=== PATIENT | female | born 1995 | race Caucasian/White ===

== ENCOUNTER 2024-09-16 13:42 | Outpatient (CLI) | payer OTHER, SELFPAY ==
--- NOTE | 2024-09-16 14:00 | CRLHL7_ITS ---
For Patients: As a result of the Century Cures Act, medical imaging exams and procedure reports are released immediately into your electronic medical record. You may view this report before your referring provider. If you have questions, please contact your health care provider. INDICATION: First trimester dating and viability. TECHNIQUE: Ultrasound OB pelvis transabdominal and transvaginal. Real-time trevizo-scale imaging of the pelvis was performed. COMPARISON: None. FINDINGS: Intrauterine gestation: Single. heart activity (bpm): 171. [place]-rump length: 3.5 cm. Estimated ultrasound age: 10 weeks 3 days. IBETH by ultrasound: 04/11/2025. Yolk sac: Normal. Perigestational hemorrhage: None. Ovaries and adnexa: The right ovary measures 2.9 x 1.4 x 2.2 cm. The left ovary measures 3.1 x 1.4 x 2.4 cm. Flow is demonstrated in both ovaries. Suspicious pelvic fluid collections: Possible small subchorionic hemorrhage measuring 1.8 x 1 x 1.2 cm. IMPRESSION: 1. Single viable intrauterine with estimated ultrasound age of 10 weeks 3 days and IBETH by ultrasound of 04/11/2025. 2. Possible small subchorionic hemorrhage Dictated by Anai Doe MD @ 09/17/2024 10:01:39 PM (Electronically Signed)
== END 2024-09-16 13:43 | disposition home or self-care (01) ==
LOC: US 13:43
PROVIDERS: Visit Provider Advanced Practice Midwife
DX: Z34.91 Encounter for supervision of normal pregnancy, unspecified, first trimester (principal); O20.9 Hemorrhage in early pregnancy, unspecified; Z3A.10 10 weeks gestation of pregnancy
CPT/HCPCS: 76801; 83021; 86592; 86703; 86704; 86706; 86762; 86787; 86803; 86850; 86900; 86901; 87086; 87340

== ENCOUNTER 2024-09-16 14:55 | Outpatient (CLI) | payer OTHER, SELFPAY | END 2024-09-16 14:56 | disposition home or self-care (01) | PROVIDERS: Visit Provider Advanced Practice Midwife | DX: Z34.91 Encounter for supervision of normal pregnancy, unspecified, first trimester (principal); Z3A.11 11 weeks gestation of pregnancy | CPT/HCPCS: 83020; 83021; 85660; 86592; 86703; 86704; 86706; 86762; 86787; 86803; 86850; 86900; 86901; 87086; 87340 ==

== ENCOUNTER 2024-11-18 09:50 | Outpatient (CLI) | payer OTHER, SELFPAY | END 2024-11-18 09:51 | disposition home or self-care (01) | LOC: US 09:51 | PROVIDERS: PCP Family Medicine; Visit Provider Obstetrics & Gynecology | DX: Z34.92 Encounter for supervision of normal pregnancy, unspecified, second trimester (principal); Z3A.20 20 weeks gestation of pregnancy | CPT/HCPCS: 76805 ==

== ENCOUNTER 2025-01-17 08:11 | Outpatient (CLI) | payer OTHER, SELFPAY ==
--- NOTE | 2025-01-17 08:15 | CRLHL7_ITS ---
For Patients: As a result of the Century Cures Act, medical imaging exams and procedure reports are released immediately into your electronic medical record. You may view this report before your referring provider. If you have questions, please contact your health care provider. OB ULTRASOUND FOLLOW-UP GROWTH IBETH by LMP or US: 04/05/2025. GA: 28 w, 6 d. Single. Comparison: US 11/18/2024. TECHNIQUE: Real time trevizo scale imaging of the fetus was performed. Transabdominal. CERVIX: Not visualized. POSITIONING: Breech. AMNIOTIC FLUID: 4.0 cm. SDP (N: greater than 2 x 1 cm) PLACENTA: Technique: Transabdominal. PLACENTA POSITION: Posterior. DOPPLER: heart rate: 154 bpm. BIOMETRY: BPD: 7.0 cm. 28 w, 1 d, 16 percent. HC: 26.5 cm. 28 w, 6 d, 17 percent. AC: 24.4 cm. 28 w, 5 d, 37 percent. FL: 4.9 cm. 26 w, 4 d, <3 percent. FL/AC ratio: 20.15 percent. HC/AC ratio: 1.08. EFW: 1150 g. Weight: 2 lbs, 9 oz. age by this US: 28 w, 1 d. IBETH by this US: 04/10/2025. Percentile by IBETH: 12 percent. IMPRESSION: 1. Sonographic gestational age 28 weeks 1 day and sonographic due date 04/10/2025. Sonographic age is 5 days behind the clinical age. 2. Estimated weight 12th percentile. Abdominal circumference 37th percentile. Femur length less than 3rd percentile. Carlos Noguera M.D. Diagnostic Radiologist [email or web address] SP/Dictated by: Carlos Noguera MD @ 01/17/2025 8:03:00 PM (Electronically Signed)
== END 2025-01-17 08:12 | disposition home or self-care (01) ==
LOC: US 08:12
PROVIDERS: PCP Family Medicine; Visit Provider Advanced Practice Midwife
DX: Z34.93 Encounter for supervision of normal pregnancy, unspecified, third trimester (principal); Z3A.28 28 weeks gestation of pregnancy
CPT/HCPCS: 76816; 86592

== ENCOUNTER 2025-03-07 14:00 | Outpatient (CLI) | payer OTHER, SELFPAY | END 2025-03-07 14:01 | disposition home or self-care (01) | PROVIDERS: PCP Family Medicine; Referring Provider Family Medicine; Visit Provider Midwife | DX: Z34.93 Encounter for supervision of normal pregnancy, unspecified, third trimester (principal); Z3A.35 35 weeks gestation of pregnancy | CPT/HCPCS: 87081; 87653 ==

== ENCOUNTER 2025-04-12 07:26 | Outpatient (CLI) | payer OTHER, SELFPAY ==
--- NOTE | 2025-04-12 07:15 | CRLHL7_ITS ---
For Patients: As a result of the Century Cures Act, medical imaging exams and procedure reports are released immediately into your electronic medical record. You may view this report before your referring provider. If you have questions, please contact your health care provider. INDICATION: 29 year-old female. Post-dates. COMPARISON: None. TECHNIQUE: Real time trevizo scale imaging of the fetus was performed. without non-stress testing. FINDINGS: Sonographic imaging demonstrates a single living intrauterine gestation. Fetus demonstrates a regular cardiac rate of 141 beats per minute. Fetus has a vertex orientation with spine to the maternal right side. The placenta is posteriorly located and toward the left lateral uterine wall. The amniotic fluid volume appears normal and there is a single deepest pocket measurement of 6.5 cm. The fetus was active and demonstrated normal breathing movements. There was normal flexion and extension of the trunk and extremities. IMPRESSION: Normal biophysical profile score of 8 out of 8. Dictated by Kodi Xiao MD @ 04/12/2025 9:18:33 AM (Electronically Signed)
== END 2025-04-12 07:27 | disposition home or self-care (01) ==
LOC: US 07:27
PROVIDERS: PCP Family Medicine; Visit Provider Advanced Practice Midwife
DX: O48.0 Post-term pregnancy (principal); Z3A.41 41 weeks gestation of pregnancy
CPT/HCPCS: 76819; 87081; 87653

== ENCOUNTER 2025-04-12 08:59 | Outpatient (CLI) | payer OTHER, SELFPAY ==
[2025-04-13 09:58] LABS: Strep B DNA Probe Negative (Negative)
[2025-04-13 10:34] LABS: Strep B Susceptibility Needed? No
== END 2025-04-12 09:00 | disposition home or self-care (01) ==
LOC: NFLDREF 08:59
PROVIDERS: PCP Family Medicine; Visit Provider Midwife
DX: O48.0 Post-term pregnancy (principal); Z3A.41 41 weeks gestation of pregnancy
CPT/HCPCS: 87081; 87653

== ENCOUNTER 2025-04-13 04:31 | Inpatient (IN) | payer OTHER, SELFPAY ==
[2025-04-13] VITALS (9 sets, daily range): BP systolic 113–144; BP diastolic 62–80; PULSE 82–118; RESP 16–20; TEMP 36.7–37; O2SAT 98; BMI 31.4
--- NOTE | 2025-04-13 05:06 | P.LDBA_ITS ---
Subjective History of Present Illness Date Seen: 04/13/25 Narrative: Patient is being admitted to Labor and Delivery for spontaneous labor. She is a 29 year old at 41 1/7 weeks gestation. Her full history and physical was dictated by Stefany MUNOZ on 03/15/2025. Please see this for details. Nathanael is supporting her in labor. No LOF. Minimal bloody show is present. Good movement. Contractions started to get stronger at 0315 with some rectal pressure. Mostly felt in the front with vaginal pressure Specific Issues/Plans Partner: Nathanael? H&P:? Completed by Stefany MUNOZ 03/15/2025? # Twin brother passed from diaphragmatic hernia 1 day after delivery? * recommended pt get more info from mother about brothers condition (not a heart defect, hole in diaphragm) * consider level II with MFM, declined * declines genetic screening at this time #? Right elbow fracture. Elbow surgery 11/22/24 at [place] She will have significant lifting restrictions for 6 months. [id number]. Most restriction have been removed, approved to hold my baby. # FAS EFW 11.9% ( BPD 28%, HC 19%, AC 33%, FL 6.5%) Follow-up growth at 28wks: 12% (BPD 16%, AC 17%, AC 37%, FL <3%) Imaging:?? Anatomy: EFW 11.9%, FL 6.5% 1)Concordance of clinical and sonographic dating. 2)Normal anatomic survey. ? Follow-up Growth: IMPRESSION: 1. Sonographic gestational age 28 weeks 1 day and sonographic due date 04/10/2025. Sonographic age is 5 days behind the clinical age. 2. Estimated weight 12th percentile. Abdominal circumference 37th percentile. Femur length less than 3rd percentile. ? Vaccinations:?? COVID: initial series, not boosted Flu: 08/16/2024 through Tdap: 01/31/25 RSV: N/A 32 week mental health: []? Last pap:? 12/18/22 NIL, neg HPV? OB - Problem Based A/P Additional Plan (1) Pain during labor: Status: Acute Plan ASSESSMENT:?? 29 at 41 1/7 weeks gestation?? complicated by:?none Labor type:Spontaneous, Early almost Active labor?? Category 1 FHR pattern.??? Labor complicated by: post term?? GBS , repeated in clinic earlier today, previous negative? PLAN:?? 1. Routine intrapartum cares as ordered. Continue with expectant management?? 2. Monitoring per policy, intermittent? 3. Planning unmedicated . Desires water . Consent signed. Hep C negative. Candidate for analgesia of choice.??? 4. Patient encouraged to reposition and ambulate to promote physiologic labor and .?? 5. Anticipate ? OB Exam Physical Exam Narrative: Vitals Reviewed Constitutional:? Alert and oriented x3 HEENT:? Normocephalic, atraumatic Neck:? Supple Lungs:? Clear to auscultation bilaterally Heart:? Regular rate and rhythm, no murmur, rub or gallop Abdomen:? Soft, nontender, and gravid. Vertex by Rivera's, confirmed with c ervical exam in clinic today. Extremities:? No edema or erythema Cervix: 5 cm/80%/-1 station/bbow, per nursing assessment NST: 130 bpm/moderate variability/accelerations absent/decelerations present x 2, likely earlys/contractions q 6 min x 80-100 sec palpating moderate
--- NOTE | 2025-04-13 07:49 | W.PM.OBVAGDE ---
OB Procedure Vag Delivery Mother Details Mother Details: The patient is a 29 year-old, 2, Para 1 now P2002, admitted on 04/13/25 at 41 1/7 weeks gestation. Weeks Gestation: 41.1 Admission Date: 04/13/25 Additional Details Amniotic Membrane Status: SROM Amniotic Membrane Rupture Date: 04/13/25 Amniotic Membrane Rupture Time: 07:19 Amniotic Membrane Fluid Description: Clear Analgesia/Anesthesia Type: None Waterbirth: Yes Pitcoin: Yes ([facility] only) Intrapartal Events: None Labor Onset: 03:15 Complete: 06:58 Pushin:58 Heart: heart tones during second stage were checked intermittently with normal baseline Delivery Details Delivery Date: 04/13/25 Delivery Time: 07:19 Route of delivery: Gender: Female Infant Viability: Alive; Heart Rate Present Position at Delivery: OA Delivery Details: Patient was admitted for spontaneous onset of labor and progressed normally. SROM noted at 0719 with clear fluid with of the baby. Patient was complete at 0658, assumed with spontaneous pushing at 0658. of a viable female at 0719 in OA in the tub. Vertex delivered OA. One tight nuchal cord that baby was somersaulted through without complication. No shoulder dystocia.. Body delivered easily and without incident. Infant passed to mothers abdomen with a vigorous cry. Cord was clamped and cut at > 5 minutes. APGARS were 8 at one minute and 9 at five minutes respectively. Mouth was bulb suctioned. Intact placenta with a 3 vessel cord delivered spontaneously at 0727. Fundus firm. 1st degree LML and right periurethral laceration both hemostatic and not repaired.QBL 78 cc + 200 EBL + 50 qbl clot . Mother and baby stable; mother plans to breastfeed. weight pending.? 1 Minute Interval Total Score: 8 5 Minute Interval Total Score: 9 Additional Details Shoulder Dystocia: No Placenta Delivery Time: 07:27 Placental Delivery Description: Spontaneous Procedure Done: Global Blood Loss: 328 Laceration: Perineal - 1st Degree (LML + right periurethral lac, both hemostatic and not repaired) Episiotomy Description: None Blood Loss Measurement Type: EBL (QBL + EBL) Bakri Used: No Sponge/Need Count Correct: Yes Cord Vessel Description: 3 Vessels, Nuchal Cord, Tight and Delivered through Event Summary Status: Mother and were stable after delivery. Disposition: floor
[2025-04-13] MEDS: IBUPROFEN 600 MG TABLET PO ×3 (08:05→21:36)
[2025-04-13] MEDS: miSOPROStoL 800 MCG/4 TABLET PR (08:23)
[2025-04-13] MEDS: TRANEXAMIC ACID 100 MG/ML INJ 1000 MG IV (09:29)
[2025-04-13] MEDS: ACETAMINOPHEN 500 MG TABLET 1000 MG PO ×2 (10:07→17:16)
[2025-04-13] MEDS: METHYLERGONOVINE MALEATE 0.2 MG/ML INJ IM (10:47)
--- NOTE | 2025-04-13 11:09 | PM.OBPNVD1 ---
OB - PN:Subj Subjective Date Seen: 04/13/25 Narrative: Since delivery Chele has continued to had a small trickle of vaginal bleeding. She did have a larger amount of bleeding along with clots when she got up to the toilet. She was unable to urinate at that time. After that incident PO Cytotec was given. Recal Cytotec was deferred at that time due to an unmedicated along with rectal pain/pressure experienced by Chele. She was again up to the toilet later where she was able to urinate. she did not have clots and a smaller amount of bleeding but still a steady trickle. Her fundus remained firm through so it was decided to give IV TXA. About an hour after the TXA she was slowing but still having pads that were being weighed so Dr. Das was consulted. See her note for more details. Will continue to monitor closely. OB - PN: Obj Exam Physical Exam: Vital signs: Pulse Resp BP 104 H 18 137/65 04/13/25 08:27 04/13/25 06:20 04/13/25 08:27 Narrative: GENERAL APPEARANCE:? normal affect, alert, visibly uncomfortable MOOD:? appropriate? ABDOMEN:? soft, non-tender the uterine fundus is U/1 and is appropriate for the stage of recovery. Frequent trickling with fundal assessment.? PERINEUM:? mild edema of the perineum, there is a 1st degree laceration that is healing well.? EXTREMITIES:? normal and no edema? OB - PN: A/P Delivery Assessment and Plan (1) Pain during labor: Status: Acute
[2025-04-13] MEDS: CEFAZOLIN 2 GM INJ IVP (12:50)
--- NOTE | 2025-04-13 14:44 | P.OBCN_ITS ---
OB - CN: HPI Date of Consult Time Seen by Provider: 10:45 Date Seen: 04/13/25 Patient: [facility] Patient Consult date: 04/13/25 Requesting Physician: Dayan Reaves CNM Primary Care Provider: Iesha King MD Consult Narrative Narrative: Chele is a 29 year old G 2 P 1001 now 2 at 41 and 1 weeks gestation at delivery this morning. She had a normal spontaneous vaginal delivery, water attended by Ismael Salguero CNM. She had 2 first-degree lacerations: one on the right labia minora and the other on the posterior left vaginal wall. The estimated blood loss from her water was 200 mL. Since delivery she has received 10 units Pitocin IM, 800 mg Cytotec NM and 1 g TXA IV. The TXA was given approximately 45 minutes prior to me seeing her at approximately 10:45 a.m. Dayan called me because the patient was continuing to have more bleeding than expected after a vaginal delivery. It was reported that her fundus was firm. Total estimated blood loss at 10:45 a.m. was approximately 700 mL. I performed a bedside ultrasound which showed a very thin endometrial stripe with minimal clots in the lower uterine segment/cervix. I recommended a dose of Methergine 0.2 mg IM now, encouraged the patient to urinate to keep her bladder empty and contact me again if her bleeding continues to be heavy. I was contacted again at approximately noon with continued heavy bleeding. I asked the patient to be moved into the prep room so that a pelvic exam could be performed as well as a speculum exam to assess for cervical lacerations. I recommended IV fentanyl for pain control as I was planning on doing a pelvic exam and manually sleeping the uterus which is very uncomfortable. I reviewed with the patient the plan and offered exam under anesthesia for pain control if the patient has significant discomfort with the exam. She preferred to try the IV fentanyl 1st. History History 2 Elective abortions Para 2 Spontaneous abortions Hx # Term Pregnancies Ectopic pregnancies Hx # Pregnancies Multiple births Number of Living Children 1 Past Pregnancies Del. Date GA/Weeks Outcome Route wt Inf Gender Labor Lgth Anesthesia Location Provider Compli 06/20/23 40 live - full term 6 lb 12 oz Female Labs GBS status: negative OB Labs: Lab Assessment Start: 04/13/25 04:34 Freq: ONCE Status: Complete Protocol: PC.OBGBS Activity Type Activity Date Activity User E-sign Co-sign Detail Recorded Client Recorded Date Recorded By Document 04/13/25 05:02 ANIKA No Response 04/13/25 05:05 ANIKA 04/13/25 05:02 Lab Assessment GBS Status negative GBS Additional Criteria None Are Labs Available Yes Maternal Blood Type A Maternal RH Factor Positive Evaluate Maternal Rubella Immune Status Immune Hepatitis B Surface Antigen Negative Maternal HIV Status Negative Maternal Syphillis (RPR) Status Negative PFSH PFS Medical History Elbow fracture, right ?S42.401A - Unspecified fracture of lower end of right humerus, initial encounter for closed fracture (ICD-10) Surgical History [place] teeth removed ?K08.409 - Partial loss of teeth, unspecified cause, unspecified class (ICD- 10) Family History Maternal Grandmother Breast cancer, Onset Age: 65 Maternal Grandfather CHF (congestive heart failure), Onset Age: 75 Social History Narrative: , emergency room nurse/ medic, 1 child Exercise 7 days a week high intensity interval training Lifetime nonsmoker Does not drink alcohol Education: associates? ? Work: /nursing? ? Partner: Nathanael? [employer] Lives with: Nathanaellesly Morenita age 15 months? ? Pets: 3 dogs, shay retriever? ? Abuse: Denies past ? Unable to assess current, partner present? ? Special Diet: Denies? ? Ok with a blood transfusion: yes? ? Culture or lutheran beliefs: denies? RISK FACTORS? ? Exercise Times/wk: hot works yoga, HIIT 3-5 days a week? ? Depression/Anxiety: denies? ? Previous Treatments [NA] ? Therapy [NA] YUDI: 0 PHQ 9: 0? ? Seat Belt Use: Routinely ? Smoking: Denies past/present? ? Alcohol/day: Denies while ? ?rare use when not pregannt Caffeine: 1 cup a day now? ? Drug Use: Denies past/present What is your current living situation?: I presently have a place to live Problems where you live: no known problems In the past 12 months, utilities in danger of being shut off: no In past 12 months, lack of transportation kept you from medical appts, meetings, work, or getting things needed for daily living: no In the past 12 mos, have been you worried that your food would run out before you had money to buy more?: never true In the past 12 mos, the food you bought just didn't last and you didn't have money to buy more?: never true Smoking Status: Never smoker How often does anyone, including family, friends and others, physically hurt you : never How often does anyone, including family, friends and others, insult or talk down to you: never How often does anyone, including family, friends and others, threaten you with harm: never How often does anyone, including family, friends and others, scream or curse at you: never Meds Home Medications and Allergies Home Medications ?Medication ?Instructions ?Recorded ?Confirmed ?Type vit 168-iron 27 mg-folic 1 cap PO 09/16/24 History acid 800 mcg-omega3 235 mg capsule (One-A-Day -1) Allergies Allergy/AdvReac Type Severity Reaction Status Date / Time nickel AdvReac Intermediate Rash Verified 04/12/25 08:07 OB - H&P: Exam Physical Exam: Vital signs: Temp Pulse Resp BP Pulse Ox O2 Del Method 98.0 F 104 H 16 120/72 98 Room Air 04/13/25 14:38 04/13/25 08:27 04/13/25 14:38 04/13/25 14:38 04/13/25 14:38 04/13/25 14:38 Narrative: General: Pleasant, , well groomed woman in no acute distress. Slightly pale. Became diaphoretic after fentanyl was given which the patient reported is a normal response for her. Vital signs: Included in her electronic medical record showing mild tachycardia. Heart: Mild tachycardia with a pulse in the 100s, normal rhythm without gallop, rub or murmur. Chest: Clear to auscultation bilaterally. Abdomen: Soft, nontender, nondistended with normal bowel sounds. The fundus is firm at 1 cm below the umbilicus. Patient reports significant cramping and tenderness to palpation of the uterus. The patient was given 50 mcg fentanyl IV and then placed in the dorsal lithotomy position. A sterile, bivalve, clear, plastic speculum was advanced into the vaginal canal and cervix could not be visualized due to extensive clots. A vaginal exam was performed and a softball-sized clot (200-300mL clot) was removed. At this point I offered the patient additional fentanyl because there was clot within the lower uterine segment cervix that needed to be removed to promote hemostasis. The patient received an additional 50 mcg of fentanyl and a bimanual exam was performed and another smaller clot was removed approximately 50 mL. A 2nd uterine sweep was performed and no additional clots were removed. The laceration repairs for the patient's first-degree lacerations from her delivery were intact. The cervix was visualized after the uterine sweep x2 was performed and no evidence of laceration was identified. Fundal massage was performed with the speculum in place visualizing the cervix and no bleeding was noted from the cervical os. The speculum was removed. Fundal massage was performed in additional time and no bleeding from the vaginal introitus was noted. One dose of 2 g of IV Ancef was ordered. A CBC was ordered but not drawn another 1 was ordered at 2:30 p.m. the patient tolerated this procedure well without problems. OB - CN: A/P Assessment and Plan (1) hemorrhage: Status: Acute Plan 1. CBC now. 2. 1 dose IV 2gm Ancef for prophylaxis after manual evacuation of clots from the uterus x2. 3. Hemoglobin tomorrow morning. 4. Will likely require iron supplementation. 5. Closely monitor for symptoms of anemia. Discussed possible need for blood products for symptomatic anemia with the patient briefly.
[2025-04-13 17:00] LABS: Hematocrit* 33.5 % (33.0-51.0); Hemoglobin* 11.4 gm/dL (12.0-16.0); Immature Granulocytes Pct Auto 0.4 %; Mean Corpuscular HGB Conc 34 gm/dL (32-36); Mean Corpuscular Hemoglobin 31 pg (26-34); Mean Corpuscular Volume 90 fL (80-100); RDW Coefficient of Variation % 14.1 % (11.5-15.5); Red Blood Count* 3.74 m/uL (4.00-5.20); White Blood Count* 18.08 K/uL (4.50-11.00)
[2025-04-13 17:16] LABS: Immature Granulocytes Abs Auto 0.10 K/uL (0.00-0.30); Lymphocytes Absolute Auto 2.30 K/uL (0.90-2.90); Slide Review Reflex No
[2025-04-14 01:02] VITALS: BP 99/66; PULSE 98; RESP 20; O2SAT 97
[2025-04-14] MEDS: ACETAMINOPHEN 500 MG TABLET 1000 MG PO ×2 (01:09→08:08)
[2025-04-14 04:55] VITALS: BP 110/68; PULSE 90; RESP 16; TEMP 36.6; O2SAT 98
[2025-04-14 05:41] LABS: Hemoglobin* 10.3 gm/dL (12.0-16.0)
[2025-04-14] MEDS: IBUPROFEN 600 MG TABLET PO (06:27)
[2025-04-14] MEDS: DOCUSATE SODIUM 100 MG CAPSULE PO (08:08)
--- NOTE | 2025-04-14 08:18 | P.DS_ITS ---
DS: Providers Provider Date Seen: 04/14/25 Date of admission: 04/13/25 04:31 Primary care physician: Iesha King MD Admitting Clinician: Gabriela Duenas CNM Consults: 04/13/25 14:58 Consult to Physician [CONS] Routine Comment: Consulting Provider: Mirian Das Has provider been notified: Yes Attending Physician on discharge: Renetta Salguero CNM DS: Diagnosis Discharge Diagnosis (1) care and examination immediately after delivery: Status: Acute (2) hemorrhage: Status: Acute (3) Lactating mother: Status: Acute Exam Narrative: Exam Narrative: GENERAL APPEARANCE:? normal affect, alert, no distress MOOD:? appropriate CHEST:? clear to auscultation HEART:? regular rate and rhythm ABDOMEN:? soft, non-tender the uterine fundus is 1 below Umbilicus, Midline and is appropriate for the stage of recovery. PERINEUM:? mild edema of the perineum, there is a Perineal Laceration,?1st degree, that is healing well. EXTREMITIES:? normal and no edema Const: Vital Signs, click to edit/add: Vital Signs - 24 hr 04/13/25 08:27 04/13/25 14:38 04/13/25 18:39 Temperature 98.0 F 98.5 F Pulse Rate 104 H Pulse Rate [Pulse Oximeter] Respiratory Rate 16 16 Blood Pressure 137/65 Blood Pressure [Ri ght Arm] 120/72 119/74 Pulse Oximetry 98 98 Oxygen Delivery Me thod Room Air Room Air 04/13/25 21:18 04/14/25 01:02 04/14/25 04:55 Temperature 98.6 F 97.8 F Pulse Rate Pulse Rate [Pulse Oximeter] 82 98 90 Respiratory Rate 20 20 16 Blood Pressure Blood Pressure [Ri ght Arm] 127/80 99/66 110/68 Pulse Oximetry 98 97 98 Oxygen Delivery Me thod Room Air Room Air Room Air Documenting provider has reviewed patient's vital signs: yes OB - DS: Summary Hospital Course Hospital Course: Chele is a 29 y.o. G 2 P 2 who was admitted to L & D for spontaneous onset of labor. ?She had a NVD that was complicated by PPH with QBL of 925. The patient feels well. ?The pain is well controlled with current medications. ?She has no new complaints. ?She is breast feeding and reports things are going [well]. Post the patient has done well.? Vitals have been stable.? She has remained afebrile.? Has a good appetite, is tolerating a general diet. ?She is voiding without difficulty.? She is passing gas and has [not] had a bowel movement.? She is ambulating and denies any dizziness.? Has small amount of rubra lochia. Problems: Mild anemia Discharge home with baby.? Follow up in 2 weeks and 6 weeks.? , may see if needed? Hgb 10.3. ?? For pain control of perineum, breast and pelvic pain, take 600 mg Ibuprofen every 6 hours as needed by mouth or 1000 mg acetaminophen (Tylenol) every 6 hours by mouth as needed. You can alternate these so you are taking something every 3 hours as needed. A heating pad can also be used for your abdomen or breasts. You may also take docusate sodium up to twice daily to soften your stools and help to prevent constipation. You may wean off of it when your stools return to normal.? Peripartum Data delivery method: Vaginal Laceration description: Perineal - 1st Degree complications: none Infant Gender: Female Infant Discharge Plan: Home Status at Discharge Functional status at discharge: independent ambulation Overall status at discharge: patient is progressing back to baseline Time Spent with Patient Time attestation: Total time spent providing and/or coordinating discharge services: Time spent: Less than 30 minutes Discharge Plan Discharge Disposition: Home, Self-Care Date of Admission: 04/13/25 04:31 Consulting Providers: Mirian Das Primary Care Provider: Iesha King Condition: Stable Anticipated Discharge Date/Time: 04/14/25 12:00 Discharge Medications: New docusate sodium 100 mg Capsule 100 mg PO DAILY Qty: 60 0RF ibuprofen 600 mg Tablet 600 mg PO Q6H PRNQty: 60 0RF acetaminophen 500 mg Tablet 1,000 mg PO Q6H PRNQty: 0 0RF Continued One-A-Day -1 27 mg iron- 800 mcg-235 mg capsule 1 cap PO Discharge Orders: Discharge Order (Routine); Ordered 04/14/25 Ordered By: Gabriela Duenas Patient Education: OB Over the Counter Medication Information, OB Vaginal/Breast Feeding Additional Instructions: Discharge instructions were reviewed with the patient including signs and symptoms of infection and home going medications Nothing vaginally for 6 weeks: no tampons or intercourse Off Work or School for 6 weeks 2-week visit: discuss infant feeding concerns, review control options and screen for anxiety/depression. 6-week visit for an annual exam. consultation services are available to all mothers and babies for the first year after delivery.? To make an appointment, please call [phone]. Activity Level: Activity as Tolerated and No strenuous activity Discharge Diet: Regular Follow Up Appointments: [facility] [Provider Group] Forms: [place] Info Instructions
[2025-04-14 09:30] VITALS: BP 112/65; PULSE 62; RESP 17; TEMP 36.8; O2SAT 98
== END 2025-04-14 13:30 | disposition home or self-care (01) | DRG 806 ==
LOC: OB OUT 04:32 → OB 04:32
PROVIDERS: Obstetrics & Gynecology; Admitting Provider Midwife; PCP Family Medicine; Visit Provider Midwife
DX: O48.0 Post-term pregnancy (principal); O72.1 Other immediate postpartum hemorrhage; Z37.0 Single live birth; O70.0 First degree perineal laceration during delivery; Z3A.41 41 weeks gestation of pregnancy
CPT/HCPCS: 36415; 76815; 85018; 85025; 86592; A9270; J0690; J2210; J2590; J3010